=== PATIENT | female | born 1980 | race Caucasian/White ===

== ENCOUNTER 2016-10-21 17:24 | Emergency (ER) | payer MEDICARE, OTHER ==
[~2016-10-21] VITALS: Wt 78.0 kg
[~2016-10-21 17:24] MED LIST: ASCO-163 PO; CARB200T70 PO; FURO-109 PO; HYDR-902 PO; LURA120T PO; METF-382 PO; POTA8CAP PO; RANI150T5 PO; VALA500T PO; ZIPR40CA2 PO
[2016-10-21] MEDS ORDERED: ACETAMINOPHEN 325 MG TAB PO ONE (18:00)
[2016-10-21] MEDS ORDERED: NITROFURANTOIN (SR) 100 MG CAP PO ONE (18:00)
[2016-10-21] MEDS ORDERED: PHENAZOPYRIDINE 100 MG TAB PO ONE (18:00)
[2016-10-21] MEDS ORDERED: BUPR200T2 PO (18:03)
[2016-10-21] MEDS ORDERED: LUBI24CA7 PO (18:03)
[2016-10-21] MEDS ORDERED: CLON2TAB3 PO (18:04)
[2016-10-21] MEDS ORDERED: MORP-58 PO (18:05)
[2016-10-21] MEDS ORDERED: ARIP20TA6 PO (18:06)
[2016-10-21 18:56] LABS: URINE BLOOD (Dip) POC Negative (NEGATIVE)
[2016-10-21] MEDS ORDERED: IBUP-1542 PO (19:12)
[2016-10-21] MEDS ORDERED: PHEN-616 PO (19:12)
--- NOTE | 2016-10-21 19:57 | ERD ---
ER Documentation Chief Complaint Date/Time DATE: 10/21/16 TIME: 19:52 Chief Complaint URINARY RETENTION FOR 2 DAYS. LOW ABD PAIN. FEELING DIZZY. BS 84 HPI Patient is a 36-year-old female with UTI, diabetes, and schizoaffective disorder who presents with bladder pain. The patient says that she has not been able to urinate for the past 2 days. She has had this problem in the past. She takes Lasix. She said that she had a fever in triage. She has not called her primary doctor as of yet. Upon review of old medical records the patient has multiple visits to the ER for various complaints. Review of the emergency department information exchange shows multiple visits to 4 different emergency departments over the past year. ROS All systems reviewed and are negative except as per history of present illness. Medications Home Meds Active Scripts Ibuprofen* (Motrin*) 600 Mg Tab, 600 MG PO Q6H Y for PAIN AND OR ELEVATED TEMP, #30 TAB Prov:RAMON WILLIAM MD 10/21/16 Phenazopyridine Hcl* (Phenazopyridine Hcl*) 200 Mg Tablet, 200 MG PO TID, #6 TAB Prov:RAMON WILLIAM MD 10/21/16 Reported Medications Aripiprazole* (Abilify*) 20 Mg Tablet, 20 MG PO QHS, #30 TAB 10/21/16 Morphine Sulfate* (Oramorph SR*) 30 Mg Tablet.sa, 30 MG PO Q12, TAB.SA 10/21/16 Clonazepam* (Clonazepam*) 2 Mg Tablet, 2 MG PO BID, TAB 10/21/16 Lubiprostone* (Amitiza*) 24 Mcg Capsule, 24 MCG PO BID, #60 CAP 10/21/16 Bupropion Hcl* (Wellbutrin SR*) 200 Mg Tablet.sa, 200 MG PO BID, TAB.SA 10/21/16 Ascorbic Acid (Vitamin C With Ivette Hips) 1,000 Mg Tablet, 1000 MG PO DAILY, TAB 07/22/16 Potassium Chloride* (Potassium Chloride*) 8 Meq Capsule.er, 8 MEQ PO DAILY, CAP 07/22/16 Carbamazepine* (Tegretol Xr*) 200 Mg Tab.sr.12h, 200 MG PO Q12, TAB.SA 09/28/15 Valacyclovir Hcl* (Valacyclovir Hcl*) 500 Mg Tablet, 500 MG PO BID, TAB 09/28/15 Furosemide* (Lasix*) 40 Mg Tablet, 40 MG PO DAILY, TAB 09/28/15 Metformin Hcl* (Metformin Hcl*) 500 Mg Tablet, 500 MG PO WITH BREAKFAST DINNE, # 60 TAB 09/28/15 Discontinued Reported Medications Hydrocodone/Acetaminophen ([place] 10-325 Tablet) 1 Each Tablet, 1 EACH PO Q8 Y for PRN, TAB 07/22/16 Ranitidine Hcl* (Ranitidine Hcl*) 150 Mg Tablet, 150 MG PO HS, #30 TAB 07/22/16 Lurasidone Hcl (LATUDA) 120 Mg Tablet, 120 MG PO DAILY, #30 TAB TAKE 5PM WITH FOOD 07/22/16 Ziprasidone* (Geodon*) 40 Mg Capsule, 40 MG PO BID, CAP 09/28/15 Allergies Allergies: Coded Allergies: sumatriptan (Verified Allergy, Unknown, 10/21/16) PMhx/Soc History of Surgery: Yes (PICC line placement /removal) Anesthesia Reaction: No Hx Neurological Disorder: Yes (Meningitis) Hx Respiratory Disorders: Yes (Pneumonia) Hx Cardiac Disorders: No Hx Psychiatric Problems: No Hx Miscellaneous Medical Probl: Yes (schizophrenia) Hx Alcohol Use: No Hx Substance Use: No Hx Tobacco Use: No Smoking Status: Never smoker FmHx Family History: diabetes Physical Exam Vitals Vital Signs Date Time Temp Pulse Resp B/P Pulse Ox O2 Delivery O2 Flow Rate FiO2 10/21/16 17:29 101.5 105 22 130/72 99 Physical Exam Const: No acute distress Head: Atraumatic Eyes: Normal Conjunctiva ENT: Normal External Ears, Nose and Mouth. Neck: Full range of motion..~ No meningismus. Resp: Clear to auscultation bilaterally Cardio: Regular rate and rhythm, no murmurs Abd: Soft, mild pain over the bladder without rebound or guarding Skin: No petechiae or rashes Back: No midline or flank tenderness Ext: No cyanosis, or edema Neur: Awake and alert Psych: Normal Mood and Affect Results 24 hrs Laboratory Tests Test 10/21/16 17:32 10/21/16 18:56 Bedside Glucose 84mg/dL Bedside Urine Blood Negative Bedside Urine Glucose (UA) Negative Bedside Urine Ketones (LAB) Negative Bedside Urine Leukocyte Esterase (L Negative Bedside Urine Nitrite (LAB) Negative Bedside Urine Protein (LAB) Negative Bedside Urine pH (LAB) 7.0 Current Medications Medications (Trade) Dose Ordered Sig/Chance Route PRN Reason Start Time Stop Time Status Last Admin Dose Admin Acetaminophen (Tylenol Tab) 650 mg ONCE ONCE PO 10/21/16 18:00 10/21/16 19:28 DC 10/21/16 18:57 Phenazopyridine HCl (Pyridium) 200 mg ONCE ONCE PO 10/21/16 18:00 10/21/16 19:28 DC 10/21/16 18:57 Nitrofurantoin Macrocrystals (Macrobid) 100 mg ONCE ONCE PO 10/21/16 18:00 10/21/16 19:28 DC 10/21/16 18:57 Procedures/MDM Urine dip shows no sign of infection. Urine culture is pending. Patient is a 36-year-old female with schizoaffective disorder who presents with urinary retention. The patient has no sign of infection at this time. The patient was given Pyridium. The patient will be discharged home and can follow- up with her primary doctor within 24-48 hours and I will also give her information for Dr. Shaikh from urology. The patient could return for any worsening symptoms. At this point I doubt serious bacterial infection or other significant etiology of her urinary retention. She does have a fever but given the time of year I believe this most likely a viral illness and not serious bacterial infection that requires further workup at this time. She was given Tylenol for fever in the emergency department. Departure Diagnosis: Primary Impression: Fever Fever type: unspecified Qualified Code: R50.9 - Fever, unspecified fever cause Additional Impression: Retention of urine Condition: Fair Patient Instructions: Fever Control (Adult), Urinary Retention, Female Referrals: SUKI SHAIKH MD Additional Instructions: Call your primary care doctor TOMORROW for an appointment during the next 1-2 days.See the doctor sooner or return here if your condition worsens before your appointment time. RAMON WILLIAM MD Oct 21, 2016 19:57
== END 2016-10-21 19:28 | disposition home or self-care (01) ==
LOC: E/R 17:24
DX: R50.9 Fever, unspecified (principal); E11.9 Type 2 diabetes mellitus without complications; Z79.84 Long term (current) use of oral hypoglycemic drugs
CPT/HCPCS: 81003; 82962; 87086; 99283

== ENCOUNTER 2016-12-13 09:05 | Emergency (ER) | payer OTHER ==
[~2016-12-13] VITALS: Ht 165.1 cm; Wt 68.0 kg
[~2016-12-13 09:05] MED LIST changes: +ARIP20TA6 PO; +BUPR200T2 PO; +CLON2TAB3 PO; -HYDR-902 PO; +IBUP-1542 PO; +LUBI24CA7 PO; -LURA120T PO; +MORP-58 PO; +PHEN-616 PO; -RANI150T5 PO; -ZIPR40CA2 PO
[2016-12-13 09:12] VITALS: Ht 165.1 cm; Wt 68.0 kg
[2016-12-13] MEDS ORDERED: BLVX50T PO (11:18)
[2016-12-13] MEDS ORDERED: CARI350T PO (11:20)
[2016-12-13] MEDS ORDERED: POTA10TA37 PO (11:21)
[2016-12-13] MEDS ORDERED: CLON2TAB3 PO (11:38)
--- NOTE | 2016-12-13 11:38 | ERD ---
ER Documentation Chief Complaint Date/Time DATE: 12/13/16 TIME: 11:33 Chief Complaint medication refill needs psych meds denies SI HI HPI Patient is a 36-year-old female with a history of schizoaffective, bipolar, anxiety and depression who presents to the ED for medication refill. She states that she has not taken her medication in the last month. She states that she ran out of her medications and is here for refill of her clonazepam, Luvox, amphetamine, Soma, morphine and potassium chloride. She states that she was homeless but is now in a sober facility. She denies any use of drugs, drinking or smoking. She states that she has an appointment with her primary care and pain management on the 12/26/16. She states that she would like refills until then. She denies any suicidal ideation. She denies plan. She denies hallucinations, auditory or visual. She states that she has had suicidal tendencies in the past however she denies any recent suicidal ideation or tendency or thoughts in the last month. Denies fever or chills. Denies nausea, vomiting, diarrhea, sweating, palpitations, shaking. Denies chest pain or shortness of breath or difficulty breathing. Denies headache or dizziness. Denies withdrawal symptoms. ROS All systems reviewed and are negative except as per history of present illness. Medications Home Meds Active Scripts Clonazepam* (Clonazepam*) 2 Mg Tablet, 2 MG PO BID for 14 Days, TAB Prov:DOMINGO HICKMAN PA-C 12/13/16 Potassium Chloride* (K-Dur*) 10 Meq Tab.prt.sr, 10 MEQ PO DAILY, #20 TAB Prov:DOMINGO HICKMAN PA-C 12/13/16 Carisoprodol* (Soma*) 350 Mg Tablet, 350 MG PO DAILY, #10 TAB Prov:DOMINGO HICKMANC 12/13/16 Fluvoxamine Maleate* (Luvox*) 50 Mg Tab, 50 MG PO BID for 30 Days, TAB Prov:DOMINGO HICKMANC 12/13/16 Ibuprofen* (Motrin*) 600 Mg Tab, 600 MG PO Q6H Y for PAIN AND OR ELEVATED TEMP, #30 TAB Prov:RAMON WILLIAM MD 10/21/16 Phenazopyridine Hcl* (Phenazopyridine Hcl*) 200 Mg Tablet, 200 MG PO TID, #6 TAB Prov:RAMON WILLIAM MD 10/21/16 Reported Medications Aripiprazole* (Abilify*) 20 Mg Tablet, 20 MG PO QHS, #30 TAB 10/21/16 Morphine Sulfate* (Oramorph SR*) 30 Mg Tablet.sa, 30 MG PO Q12, TAB.SA 10/21/16 Clonazepam* (Clonazepam*) 2 Mg Tablet, 2 MG PO BID, TAB 10/21/16 Lubiprostone* (Amitiza*) 24 Mcg Capsule, 24 MCG PO BID, #60 CAP 10/21/16 Bupropion Hcl* (Wellbutrin SR*) 200 Mg Tablet.sa, 200 MG PO BID, TAB.SA 10/21/16 Ascorbic Acid (Vitamin C With Ivette Hips) 1,000 Mg Tablet, 1000 MG PO DAILY, TAB 07/22/16 Potassium Chloride* (Potassium Chloride*) 8 Meq Capsule.er, 8 MEQ PO DAILY, CAP 07/22/16 Carbamazepine* (Tegretol Xr*) 200 Mg Tab.sr.12h, 200 MG PO Q12, TAB.SA 09/28/15 Valacyclovir Hcl* (Valacyclovir Hcl*) 500 Mg Tablet, 500 MG PO BID, TAB 09/28/15 Furosemide* (Lasix*) 40 Mg Tablet, 40 MG PO DAILY, TAB 09/28/15 Metformin Hcl* (Metformin Hcl*) 500 Mg Tablet, 500 MG PO WITH BREAKFAST DINNE, # 60 TAB 09/28/15 Allergies Allergies: Coded Allergies: sumatriptan (Verified Allergy, Unknown, 10/21/16) PMhx/Soc History of Surgery: Yes (PICC line placement /removal) Anesthesia Reaction: No Hx Neurological Disorder: Yes (Meningitis) Hx Respiratory Disorders: Yes (Pneumonia) Hx Cardiac Disorders: No Hx Psychiatric Problems: No Hx Miscellaneous Medical Probl: Yes (schizophrenia) Hx Alcohol Use: No Hx Substance Use: No Hx Tobacco Use: No FmHx Family History: No coronary disease, No diabetes, No other Physical Exam Vitals Vital Signs Date Time Temp Pulse Resp B/P Pulse Ox O2 Delivery O2 Flow Rate FiO2 12/13/16 09:12 98.1 120 18 146/83 98 Physical Exam GENERAL: Well-developed, well-nourished female. Appears in no acute distress. HEAD: Normocephalic, atraumatic. EYES: Pupils are equally reactive bilaterally. EOMs grossly intact. No conjunctival erythema. ENT: Moist mucous membranes. No uvula deviation. No kissing tonsils. No exudates. NECK: Supple. No lymphadenopathy or thyromegaly. No meningismus. negative kernig. negative brudinski. LUNG: Clear to auscultation bilaterally. No rhonchi, wheezing, rales or coarse breath sounds. HEART: Regular rate and rhythm. No murmurs, rubs or gallops. ABDOMEN: No scars, ecchymosis or rashes noted. Soft, nontender, and nondistended. Positive bowel sounds in all four quadrants. No rebound tenderness , no guarding. (-) McBurneys point tenderness. No CVA tenderness. BACK: No midline tenderness. Extremities: Equal pulses bilaterally. No peripheral clubbing, cyanosis or edema. No unilateral leg swelling. NEUROLOGIC: Alert and oriented. Moving all four extremities. 5/5 strength in all extremities. Normal speech. Steady gait. SKIN: Normal color. Warm and dry. No rashes or lesions. Capillary refill < 2 seconds Procedures/MDM ER COURSE: I kept the patient and/or family informed of laboratory and diagnostic imaging results throughout the emergency room course. MEDICAL DECISION MAKING: This is a 36-year-old female who presents with medication refill. Vital signs were reviewed. Patient is afebrile. Patient is not hypoxic. Patient is not toxic or ill-appearing. I will be refilling her medications except for her morphine and amphetamines. I consulted with Dr. Doe regarding this and he stated that no pain medications can be refilled. Since patient has had a drug overdose I will not be refilling any of her narcotic pain medications and there is drug seeking behavior. I will give her a short course of Soma however no morphine or amphetamine. I did explain this to patient which she understood. I will also be giving patient other pain management doctors that she can follow- up with possibly earlier. Patient refused any social service help or any help for community resources. I have low suspicion for seizure, sepsis, withdrawal symptoms, delirium tremens, hallucinations, suicide. DISCHARGE: At this time, patient is stable for discharge and outpatient management with no new complaints during the ER course. Patient was sent home with refill of Luvox , clonazepam and Soma and KCL. I explained to patient that no other narcotic pain medications will be filled and that she has to follow up with her pain specialist or PCP for her refills. I explained to her that I will not be calling the pharmacy to check for her prescriptions.Patient will be discharged home with instructions to recheck for new or worsening symptoms such as fever, nausea, weakness, LOC and to follow up with primary care in the next 1-2 days. Patient was advised to return to the ER for any new or worsening symptoms. Plan was discussed and patient and/or family understands and agrees. Home instructions were given. Departure Diagnosis: Primary Impression: Encounter for medication refill Condition: Stable Patient Instructions: Taking Medicine Safely Referrals: MAY CRUZ (PCP) DOE MOSS MD, ANTHONY Jr., LIOR FOUNTAIN MD Additional Instructions: Call your primary care doctor TOMORROW for an appointment during the next 1-2 days.See the doctor sooner or return here if your condition worsens before your appointment time. DOMINGO HICKMAN PA-C Dec 13, 2016 11:37
== END 2016-12-13 11:45 | disposition home or self-care (01) ==
LOC: FTE 09:05
DX: Z76.0 Encounter for issue of repeat prescription (principal); E11.9 Type 2 diabetes mellitus without complications; Z79.84 Long term (current) use of oral hypoglycemic drugs
CPT/HCPCS: 99281

== ENCOUNTER 2016-12-23 01:07 | Emergency (ER) | payer OTHER ==
[~2016-12-23] VITALS: Ht 170.2 cm; Wt 68.0 kg
[~2016-12-23 01:07] MED LIST changes: -ARIP20TA6 PO; +ARIP20TA7 PO; +BLVX50T PO; +CARI350T PO; -METF-382 PO; +METF500T4 PO; +POTA10TA37 PO
[2016-12-23 01:15] VITALS: Ht 170.2 cm; Wt 68.0 kg
--- NOTE | 2016-12-23 01:36 | ERA ---
ER Documentation Chief Complaint Date/Time DATE: 12/23/16 TIME: 01:35 Chief Complaint Pt repors SI but no plan and visual hallucinations. Off meds for 2 weeks HPI The patient is a 36-year-old female, presenting to the ER because of suicidal ideation, she has no plans. She has been off the medication for the last 2 weeks including Abilify, carbamazepine, clonazepam because he has been relapsed for the last 2 weeks doing amphetamine. She does not have any homicidal ideation, fever, chills, neck pain, chest pain, abdominal pain, vomiting, dysuria, diarrhea, constipation. She does not smoke nor drink Past medical history: Schizoaffective disorder, diabetes mellitus Past surgical history: , surgery related to cervical cancer ROS All systems reviewed and are negative except as per history of present illness. Medications Home Meds Active Scripts Clonazepam* (Clonazepam*) 2 Mg Tablet, 2 MG PO BID for 14 Days, TAB Prov:DOMINGO HICKMAN PA-C 12/13/16 Potassium Chloride* (K-Dur*) 10 Meq Tab.prt.sr, 10 MEQ PO DAILY, #20 TAB Prov:DOMINGO HICKMAN PA-C 12/13/16 Carisoprodol* (Soma*) 350 Mg Tablet, 350 MG PO DAILY, #10 TAB Prov:DOMINGO HICKMAN PA-C 12/13/16 Fluvoxamine Maleate* (Luvox*) 50 Mg Tab, 50 MG PO BID for 30 Days, TAB Prov:DOMINGO HICKMAN PA-C 12/13/16 Ibuprofen* (Motrin*) 600 Mg Tab, 600 MG PO Q6H Y for PAIN AND OR ELEVATED TEMP, #30 TAB Prov:RAMON WILLIAM MD 10/21/16 Phenazopyridine Hcl* (Phenazopyridine Hcl*) 200 Mg Tablet, 200 MG PO TID, #6 TAB Prov:RAMON WILLIAM MD 10/21/16 Reported Medications Aripiprazole* (Abilify*) 20 Mg Tablet, 20 MG PO QHS, #30 TAB 10/21/16 Morphine Sulfate* (Oramorph SR*) 30 Mg Tablet.sa, 30 MG PO Q12, TAB.SA 10/21/16 Clonazepam* (Clonazepam*) 2 Mg Tablet, 2 MG PO BID, TAB 10/21/16 Lubiprostone* (Amitiza*) 24 Mcg Capsule, 24 MCG PO BID, #60 CAP 10/21/16 Bupropion Hcl* (Wellbutrin SR*) 200 Mg Tablet.sa, 200 MG PO BID, TAB.SA 10/21/16 Ascorbic Acid (Vitamin C With Ivette Hips) 1,000 Mg Tablet, 1000 MG PO DAILY, TAB 07/22/16 Potassium Chloride* (Potassium Chloride*) 8 Meq Capsule.er, 8 MEQ PO DAILY, CAP 07/22/16 Carbamazepine* (Tegretol Xr*) 200 Mg Tab.sr.12h, 200 MG PO Q12, TAB.SA 09/28/15 Valacyclovir Hcl* (Valacyclovir Hcl*) 500 Mg Tablet, 500 MG PO BID, TAB 09/28/15 Furosemide* (Lasix*) 40 Mg Tablet, 40 MG PO DAILY, TAB 09/28/15 Metformin Hcl* (Metformin Hcl*) 500 Mg Tablet, 500 MG PO WITH BREAKFAST DINNE, # 60 TAB 09/28/15 Allergies Allergies: Coded Allergies: sumatriptan (Verified Allergy, Unknown, 10/21/16) PMhx/Soc History of Surgery: Yes (PICC line placement /removal) Anesthesia Reaction: No Hx Neurological Disorder: Yes (Meningitis) Hx Respiratory Disorders: Yes (Pneumonia) Hx Cardiac Disorders: No Hx Psychiatric Problems: No Hx Miscellaneous Medical Probl: Yes (schizophrenia) Hx Alcohol Use: No Hx Substance Use: No Hx Tobacco Use: No Smoking Status: Never smoker Physical Exam Vitals Vital Signs Date Time Temp Pulse Resp B/P Pulse Ox O2 Delivery O2 Flow Rate FiO2 12/23/16 01:15 97.8 100 18 132/83 100 Physical Exam Const: No acute distress. Head: Atraumatic. Eyes: Normal Conjunctiva. ENT: Normal External Ears, Nose and Mouth. Neck: Full range of motion. No meningismus. Resp: Clear to auscultation bilaterally. Cardio: Regular rate and rhythm, no murmurs. Abd: Soft, non distended, normal bowel sounds, non tender. Skin: No petechiae or rashes. Back: No midline or flank tenderness. Ext: No cyanosis, or edema. Neur: Awake and alert. No focal deficit Psych: Depressed Result Diagram: 12/23/16 0210 12/23/16 0210 Results 24 hrs Laboratory Tests Test 12/23/16 01:45 12/23/16 02:08 12/23/16 02:10 Urine Color YELLOW Urine Clarity CLOUDY Urine pH 6.0 Urine Specific [place] 1.025 Urine Ketones TRACE Urine Nitrite NEGATIVE Urine Bilirubin 2+ Urine Ictotest NEGATIVE Urine Urobilinogen 1.0 E.U./dL Urine Leukocyte Esterase 1+ Urine Microscopic RBC NONE SEEN/HPF Urine Microscopic WBC 25-50/HPF Urine Squamous Epithelial Cells MANY Urine Calcium Oxalate Crystals OCCASIONAL Urine Bacteria MANY Urine Hemoglobin TRACE Urine Glucose NEGATIVE% Urine Total Protein 1+ Urine Opiates Screen Negative Urine Barbiturates Negative Urine Amphetamines Screen Positive Urine Benzodiazepines Screen Negative Urine Cocaine Screen Negative Urine Cannabinoids Negative Bedside Glucose 125mg/dL White Blood Count 8.010^3/ul Red Blood Count 4.2110^6/ul Hemoglobin 12.7g/dl Hematocrit 38.6% Mean Corpuscular Volume 91.7fl Mean Corpuscular Hemoglobin 30.2pg Mean Corpuscular Hemoglobin Concent 32.9g/dl Red Cell Distribution Width 13.2% Platelet Count 38451^3/UL Mean Platelet Volume 9.5fl Neutrophils % 66.7% Lymphocytes % 24.1% Monocytes % 6.5% Eosinophils % 1.8% Basophils % 0.6% Nucleated Red Blood Cells % 0.0/100WBC Neutrophils # 5.310^3/ul Lymphocytes # 1.910^3/ul Monocytes # 0.510^3/ul Eosinophils # 0.110^3/ul Basophils # 0.110^3/ul Nucleated Red Blood Cells # 0.010^3/ul Sodium Level 144mmol/L Potassium Level 3.4mmol/L Chloride Level 102mmol/L Carbon Dioxide Level 28mmol/L Anion Gap 17 Blood Urea Nitrogen 12mg/dl Creatinine 0.81mg/dl Glucose Level 120mg/dl Calcium Level 9.3mg/dl Total Bilirubin 0.2mg/dl Direct Bilirubin 0.00mg/dl Indirect Bilirubin 0.2mg/dl Aspartate Amino Transf (AST/SGOT) 31IU/L Alanine Aminotransferase (ALT/SGPT) 29IU/L Alkaline Phosphatase 125IU/L Total Protein 8.0g/dl Albumin 4.2g/dl Globulin 3.80g/dl Albumin/Globulin Ratio 1.10 Salicylates Level < 1.0mg/dl Acetaminophen Level < 10.0ug/ml Ethyl Alcohol Level < 10.0mg/dl Procedures/MDM MEDICAL MAKING DECISION: The patient is a 36-year-old female, presenting with acute suicidal ideation, substance abuse, acute hypokalemia, acute cystitis. She was treated with potassium chloride 20 mEq p.o. for hypokalemia, Bactrim DS p.o. for acute cystitis. The differential diagnoses considered include but are not limited to psychosis, drug-induced psychosis, UTI, pyelonephritis, depression Departure Diagnosis: Primary Impression: Suicidal ideation Additional Impressions: UTI (urinary tract infection) Hypokalemia Amphetamine abuse Condition: Stable Comments She is awaiting for telepsychiatrist evaluation The patient's blood pressure was elevated (>120/80) but appears stable without evidence of hypertension emergency or urgency. The patient was counseled about the risks of hypertension and urged to pursue outpatient monitoring and therapy within a week with their primary care physician. JUSTUS TALBERT MD Dec 23, 2016 01:36
[2016-12-23 02:06] LABS: ADD UMIC YES; URINE BILIRUBIN (Dip) 2+ (NEGATIVE); URINE BLOOD (Dip) TRACE (NEGATIVE); URINE COLOR YELLOW (YELLOW); URINE GLUCOSE (Dip) NEGATIVE (NEGATIVE); URINE KETONES (Dip) TRACE (NEGATIVE); URINE LEUKOCYTE ESTERASE (Dip) 1+ (NEGATIVE); URINE NITRITE (Dip) NEGATIVE (NEGATIVE); URINE TOTAL PROTEIN (Dip) 1+ (NEGATIVE); URINE UROBILINOGEN (Dip) 1.0 E.U./dL (0.1-1.0)
[2016-12-23 02:16] LABS: ICTOTEST NEGATIVE (NEGATIVE)
[2016-12-23 02:18] LABS: URINE RBCS NONE SEEN /HPF (0)
[2016-12-23 02:19] LABS: BACTERIA,URINE MANY; SQUAMOUS EPITHELIAL CELL,UR MANY
[2016-12-23 02:31] LABS: BENZODIAZEPINES Negative (NEGATIVE)
[2016-12-23 02:32] LABS: BARBITURATES Negative (NEGATIVE); CANNABINOIDS Negative (NEGATIVE)
[2016-12-23 02:33] LABS: OPIATES Negative (NEGATIVE)
[2016-12-23 02:34] LABS: ADD SCAN DIFF NO
[2016-12-23 02:36] LABS: BASOPHIL # 0.1 10^3/ul (0.0-0.1); BASOPHILS % 0.6 % (0.0-2.0); EOSINOPHILS # 0.1 10^3/ul (0.0-0.5); EOSINOPHILS % 1.8 % (0.0-7.0); HEMATOCRIT 38.6 % (37.0-47.0); HEMOGLOBIN 12.7 g/dl (12.0-16.0); LYMPHOCYTES # 1.9 10^3/ul (0.8-2.9); LYMPHOCYTES % 24.1 % (15.0-51.0); MEAN CORPUSCULAR HEMOGLOBIN 30.2 pg (29.0-33.0); MEAN CORPUSCULAR HGB CONC 32.9 g/dl (32.0-37.0); MEAN CORPUSCULAR VOLUME 91.7 fl (82.0-101.0); MEAN PLATELET VOLUME 9.5 fl (7.4-10.4); MONOCYTE # 0.5 10^3/ul (0.3-0.9); MONOCYTES % 6.5 % (0.0-11.0); NEUTROPHIL # 5.3 10^3/ul (1.6-7.5); NEUTROPHILS % 66.7 % (39.0-77.0); PLATELET COUNT 406 10^3/UL (140-415); RED BLOOD COUNT 4.21 10^6/ul (4.20-5.40); RED CELL DISTRIBUTION WIDTH 13.2 % (11.5-14.5)
[2016-12-23 02:38] LABS: COCAINE Negative (NEGATIVE)
[2016-12-23 02:43] LABS: ALBUMIN 4.2 g/dl (3.3-4.9)
[2016-12-23 02:44] LABS: CHLORIDE 102 mmol/L (97-110); POTASSIUM 3.4 mmol/L (3.5-5.1); SODIUM 144 mmol/L (135-144)
[2016-12-23 02:46] LABS: ALANINE AMINOTRANSFERASE 29 IU/L (13-69); ALKALINE PHOSPHATASE 125 IU/L (42-121); ANION GAP 17 (8-16); ASPARTATE AMINO TRANSFERASE 31 IU/L (15-46); BILIRUBIN,INDIRECT 0.2 mg/dl (0-1.1); BILIRUBIN,TOTAL 0.2 mg/dl (0.2-1.3); BLOOD UREA NITROGEN 12 mg/dl (7-20); CARBON DIOXIDE 28 mmol/L (21-31); CREATININE 0.81 mg/dl (0.44-1.00); GLUCOSE 120 mg/dl (70-220)
[2016-12-23 02:47] LABS: CALCIUM 9.3 mg/dl (8.4-10.2); SALICYLATE < 1.0 mg/dl (5.0-30.0)
[2016-12-23 03:22] LABS: ACETAMINOPHEN < 10.0 ug/ml (10.0-30.0); ETHANOL < 10.0 mg/dl
[2016-12-23] MEDS ORDERED: POTASSIUM CHLORIDE (SR) 20 MEQ TAB PO ONE (03:49)
[2016-12-23] MEDS ORDERED: TRIMETHOPRIM/SULFAMETHOX (DS) TAB PO ONE (04:00)
--- NOTE | 2016-12-23 04:03 | PSY ---
Date/Time of Note Date/Time of Note DATE: 12/23/16 TIME: 03:57 Psychiatric Subjective Eval Consent Pt consented to telemedicine: Yes Subjective Evaluation Patient location: emergency Chief Complaint: Pt repors SI but no plan and visual hallucinations. Off meds for 2 weeks Reason for consult: Suicidal ideation, psychosis History of present illness Pt reports a long history of psychiatric illness. She states she started hallucinating as a baby in the crib. She takes Abilify 20mg, Clonazepam, TEgretol, Luvox and Adderall for her psychiatric conditions. She has had multiple medication trials and psychiatric admissions. Approximately two weeks ago she started missing some of her medications, reducing the dose and not taking others. She started deteriorating. She became paranoid that people were out to harm her. She started hearing voices. Two days ago, she started back on her medications as prescribed. However, today she started seeing images turn into people. She became very scared and started thinking about killing herself. Patient does not want to kill herself and does not have a plan but is scared of her hallucinations and does not feel safe out of the hospital. Past psychiatric history Diagnosed with schizoaffective disorder. See above Hospitalization: yes Family History NA Medical history Problems Medical Problems: (1) Acute drug overdose Status: Acute (2) Acute schizoaffective disorder Status: Acute (3) Chronic pain Status: Acute (4) Coagulopathy Status: Acute (5) Contusion Status: Acute (6) Drug-seeking behavior Status: Acute (7) Encounter for medication refill Status: Acute (8) Fever Status: Acute (9) Fever Status: Acute (10) Hallucinations Status: Acute (11) Headache Status: Acute (12) Influenza-like symptoms Status: Acute (13) Intentional drug overdose Status: Acute (14) Medication refill Status: Acute (15) Opioid dependence Status: Acute (16) Patient left without being seen Status: Acute (17) Retention of urine Status: Acute (18) Retention of urine Status: Acute (19) Suicidal ideation Status: Acute (20) Suicide attempt by substance overdose Status: Acute Allergies: Coded Allergies: sumatriptan (Verified Allergy, Unknown, 10/21/16) Substance Abuse Substance abuse history: Yes Social History Marital status: Level of education: N.A DPA/Conservatorship: No Occupation/Jail: Not employed. Lives in sober living Psychiatric Objective Eval Mental Status Examination: Appearance: Groomed Eye Contact: Fair Psychomotor Activity: Normal Behavior: Friendly Speech: Clear AFFECT: Anxious Mood: Depressed Though Process: Linear Thought Content: Hallucinations, Illusion Suicidal: Yes Homicidal: No On 72 hour hold: No Orientation: x4 Cognition: Alert Insight: Impared Judgement: Impared Laboratory Results Laboratory Tests Test 12/23/16 01:45 12/23/16 02:08 12/23/16 02:10 Urine Color YELLOW Urine Clarity CLOUDY Urine pH 6.0 Urine Specific [place] 1.025 Urine Ketones TRACE Urine Nitrite NEGATIVE Urine Bilirubin 2+ Urine Ictotest NEGATIVE Urine Urobilinogen 1.0 E.U./dL Urine Leukocyte Esterase 1+ Urine Microscopic RBC NONE SEEN/HPF Urine Microscopic WBC 25-50/HPF Urine Squamous Epithelial Cells MANY Urine Calcium Oxalate Crystals OCCASIONAL Urine Bacteria MANY Urine Hemoglobin TRACE Urine Glucose NEGATIVE% Urine Total Protein 1+ Urine Opiates Screen Negative Urine Barbiturates Negative Urine Amphetamines Screen Positive Urine Benzodiazepines Screen Negative Urine Cocaine Screen Negative Urine Cannabinoids Negative Bedside Glucose 125mg/dL White Blood Count 8.010^3/ul Red Blood Count 4.2110^6/ul Hemoglobin 12.7g/dl Hematocrit 38.6% Mean Corpuscular Volume 91.7fl Mean Corpuscular Hemoglobin 30.2pg Mean Corpuscular Hemoglobin Concent 32.9g/dl Red Cell Distribution Width 13.2% Platelet Count 94121^3/UL Mean Platelet Volume 9.5fl Neutrophils % 66.7% Lymphocytes % 24.1% Monocytes % 6.5% Eosinophils % 1.8% Basophils % 0.6% Nucleated Red Blood Cells % 0.0/100WBC Neutrophils # 5.310^3/ul Lymphocytes # 1.910^3/ul Monocytes # 0.510^3/ul Eosinophils # 0.110^3/ul Basophils # 0.110^3/ul Nucleated Red Blood Cells # 0.010^3/ul Sodium Level 144mmol/L Potassium Level 3.4mmol/L Chloride Level 102mmol/L Carbon Dioxide Level 28mmol/L Anion Gap 17 Blood Urea Nitrogen 12mg/dl Creatinine 0.81mg/dl Glucose Level 120mg/dl Calcium Level 9.3mg/dl Total Bilirubin 0.2mg/dl Direct Bilirubin 0.00mg/dl Indirect Bilirubin 0.2mg/dl Aspartate Amino Transf (AST/SGOT) 31IU/L Alanine Aminotransferase (ALT/SGPT) 29IU/L Alkaline Phosphatase 125IU/L Total Protein 8.0g/dl Albumin 4.2g/dl Globulin 3.80g/dl Albumin/Globulin Ratio 1.10 Salicylates Level < 1.0mg/dl Acetaminophen Level < 10.0ug/ml Ethyl Alcohol Level < 10.0mg/dl Assessment and Plan Assessment/Diagnosis [place]: Schizoaffective Disorder by History; Unspecified Psychotic Disorder, Stimulant Use Disorder Recommendation/Plan Medication Management Per inpatient psychiatry. It does appear that there is room to increase her abilify, if needed, from 20 to 30mg. However, patient is feeling a little better by being in the ER. Would not make change at this time. Psychotherapy Brief supportive therapy Pt. Caregiver/Family Education N/A Follow-up/Disposition Transfer to inpatient psychiatry. Voluntary. Patient is having suicidal ideation but denies plan and intent. However, she is scared of her hallucinations and does not feel safe out of the hospital. [id number] Recommendation: Transfer voluntary MARIANNAJUANITA Dec 23, 2016 04:03
[2016-12-23] MEDS ORDERED: metFORMIN 500 MG TAB PO ONE (08:00)
[2016-12-23] MEDS ORDERED: ARIPIPRAZOLE 10 MG TAB PO ONE (08:00)
[2016-12-23 12:40] VITALS: BP 105/59; PULSE 84; RESP 17; TEMP 98.1
[2016-12-23] MEDS ORDERED: clonAZEPAM 0.5 MG TAB PO ONE (14:30)
== END 2016-12-23 15:16 ==
LOC: E/R 01:07
DX: N39.0 Urinary tract infection, site not specified (principal); R45.851 Suicidal ideations; E87.6 Hypokalemia; F15.10 Other stimulant abuse, uncomplicated; E11.9 Type 2 diabetes mellitus without complications; Z79.84 Long term (current) use of oral hypoglycemic drugs
CPT/HCPCS: 36415; 80053; 80306; 80307; 81001; 82962; 85025; 99285; J0400; 81003

== ENCOUNTER 2017-02-03 14:03 | Emergency (ER) | payer OTHER, MEDICAID ==
[~2017-02-03] VITALS: Wt 69.0 kg
[~2017-02-03 14:03] MED LIST changes: -PHEN-616 PO
[2017-02-03] MEDS ORDERED: BLVX50T PO (14:26)
[2017-02-03] MEDS ORDERED: CLON2TAB3 PO (14:31)
--- NOTE | 2017-02-03 15:23 | ERD ---
ER Documentation Chief Complaint Date/Time DATE: 02/03/17 TIME: 15:18 Chief Complaint mild paranoia but no suicidal or homicidal ideation. needs meds refill only HPI 36-year-old female patient with a past medical history of diabetes, seizures, schizoaffective disorder, bipolar, anxiety, depression presents to the ED for a medication refill. States that she ran out of her medication about 6 days ago. Reports that she ran out of Clonazepam and Luvox. States that the other medication she takes are metformin, Lasix, Klonopin, Keppra, Abilify, Adderall and Valtrex. Denies any drug use, smoking, alcohol use. States that she was trying to contact Dr. Victor M Alex her psychiatrist but the prescriptions never went through to the pharmacy and states that since it is the weekend she is unable to get in contact with them. Denies any chest pain, shortness of breath, abdominal pain, nausea, vomiting, dizziness, headache, palpitations, shaking. Denies any fever or chills. Denies any homicidal or suicidal ideations. Denies any hallucinations that are auditory or visual. ROS All systems reviewed and are negative except as per history of present illness. Medications Home Meds Active Scripts Clonazepam* (Clonazepam*) 2 Mg Tablet, 2 MG PO BID for 14 Days, TAB Prov:SARTHAK BATISTA PA-C 02/03/17 Fluvoxamine Maleate* (Luvox*) 50 Mg Tab, 50 MG PO BID for 30 Days, TAB Prov:SARTHAK BATISTA PA-C 02/03/17 Clonazepam* (Clonazepam*) 2 Mg Tablet, 2 MG PO BID for 14 Days, TAB Prov:DOMINGO HICKMAN PA-C 12/13/16 Potassium Chloride* (K-Dur*) 10 Meq Tab.prt.sr, 10 MEQ PO DAILY, #20 TAB Prov:DOMINGO HICKMAN PA-C 12/13/16 Carisoprodol* (Soma*) 350 Mg Tablet, 350 MG PO DAILY, #10 TAB Prov:DOMINGO HICKMAN PA-C 12/13/16 Fluvoxamine Maleate* (Luvox*) 50 Mg Tab, 50 MG PO BID for 30 Days, TAB Prov:DOMINGO HICKMAN PA-C 12/13/16 Ibuprofen* (Motrin*) 600 Mg Tab, 600 MG PO Q6H Y for PAIN AND OR ELEVATED TEMP, #30 TAB Prov:RAMON WILLIAM MD 10/21/16 Reported Medications Aripiprazole* (Abilify*) 20 Mg Tablet, 20 MG PO QHS, #30 TAB 10/21/16 Morphine Sulfate* (Oramorph SR*) 30 Mg Tablet.sa, 30 MG PO Q12, TAB.SA 10/21/16 Clonazepam* (Clonazepam*) 2 Mg Tablet, 2 MG PO BID, TAB 10/21/16 Lubiprostone* (Amitiza*) 24 Mcg Capsule, 24 MCG PO BID, #60 CAP 10/21/16 Bupropion Hcl* (Wellbutrin SR*) 200 Mg Tablet.sa, 200 MG PO BID, TAB.SA 10/21/16 Ascorbic Acid (Vitamin C With Ivette Hips) 1,000 Mg Tablet, 1000 MG PO DAILY, TAB 07/22/16 Potassium Chloride* (Potassium Chloride*) 8 Meq Capsule.er, 8 MEQ PO DAILY, CAP 07/22/16 Carbamazepine* (Tegretol Xr*) 200 Mg Tab.sr.12h, 200 MG PO Q12, TAB.SA 09/28/15 Valacyclovir Hcl* (Valacyclovir Hcl*) 500 Mg Tablet, 500 MG PO BID, TAB 09/28/15 Furosemide* (Lasix*) 40 Mg Tablet, 40 MG PO DAILY, TAB 09/28/15 Metformin Hcl* (Metformin Hcl*) 500 Mg Tablet, 500 MG PO WITH BREAKFAST DINNE, # 60 TAB 09/28/15 Allergies Allergies: Coded Allergies: sumatriptan (Verified Allergy, Unknown, 10/21/16) PMhx/Soc History of Surgery: Yes (PICC line placement /removal) Anesthesia Reaction: No Hx Neurological Disorder: Yes (Meningitis) Hx Respiratory Disorders: Yes (Pneumonia) Hx Cardiac Disorders: No Hx Psychiatric Problems: Yes (Schizoaffective Disorder) Hx Miscellaneous Medical Probl: No Hx Alcohol Use: No Hx Substance Use: Yes (Meth) Hx Tobacco Use: No Physical Exam Vitals Vital Signs Date Time Temp Pulse Resp B/P Pulse Ox O2 Delivery O2 Flow Rate FiO2 02/03/17 14:09 98.0 101 20 115/79 98 Physical Exam Const: [id number], well-nourished. In no acute distress. Head: Atraumatic, normocephalic Eyes: Normal Conjunctiva without injection. No purulent discharge. PERRLA. EOMI ENT: Normal external ear. Ear canal without erythema. Tympanic membrane pearly daniels without effusion or bulging. Nasal canal clear with normal turbinates. Moist oropharynx without tonsillar exudates. Non-erythematous pharynx. Uvula midline. No drooling. No trismus. Neck: No cervical midline tenderness. Full range of motion. No meningismus. No cervical lymphadenopathy. No JVD. Resp: Clear to auscultation bilaterally. No wheezing, rhonchi, rales, or crackles. No accessory muscle use. No retractions. Cardio: Regular rate and rhythm. No murmurs, rubs or gallops. Skin: Normal skin turgor. No petechiae or rashes Ext: No cyanosis, or edema. Distal pulses intact bilaterally. Neur: Awake and alert. Normal gait. Normal coordination. Cranial Nerves II- VII intact. Normal finger to nose. Muscle strength 5/5. Sensation intact. Psych: Normal Mood and Affect Procedures/MDM This is a 36-year-old female patient with a past medical history of diabetes, seizures, schizoaffective disorder, depression, anxiety presents to the ED for a medication refill. Vital signs reviewed by me. Patient is afebrile. Patient is well-appearing. I will refill her Luvox and Clonazepam at this time. Patient is afebrile and nontoxic-appearing. Patient has normal vital signs. There is low suspicion for seizures, sepsis, withdrawal symptoms, delirium tremens, hallucinations, suicide, meningitis. No indication for tele- psychiatric consultation at this time. Patient did not request for any narcotic prescriptions. Discharge medications: Luvox, Clonazepam Follow up with primary care physician in 1-2 days. Instructed patient to return to the ED sooner for any worsening symptoms. Patient's questions were answered. Patient understood and agreed with discharge plan. Patient discharged stable. Departure Diagnosis: Primary Impression: Encounter for medication refill Condition: Stable Patient Instructions: Taking Medicine Safely Referrals: [facility] CRU[facility] (PCP) [facility] YOU HAVE RECEIVED A MEDICAL SCREENING EXAM AND THE RESULTS INDICATE THAT YOU DO NOT HAVE A CONDITION THAT REQUIRES URGENT TREATMENT IN THE EMERGENCY DEPARTMENT. FURTHER EVALUATION AND TREATMENT OF YOUR CONDITION CAN WAIT UNTIL YOU ARE SEEN IN YOUR DOCTORS OFFICE WITHIN THE NEXT 1-2 DAYS. IT IS YOUR RESPONSIBILITY TO MAKE AN APPOINTMENT FOR FOLOW-UP CARE. IF YOU HAVE A PRIMARY DOCTOR --you should call your primary doctor and schedule an appointment IF YOU DO NOT HAVE A PRIMARY DOCTOR YOU CAN CALL OUR PHYSICIAN REFERRAL HOTLINE AT IF YOU CAN NOT AFFORD TO SEE A PHYSICIAN YOU CAN CHOSE FROM THE FOLLOWING [facility] [address] [facility] [address] [facility] [address] [facility] [address] [facility] [address] [facility]. [facility] [address] [facility] [address]. [facility] YOU HAVE RECEIVED A MEDICAL SCREENING EXAM AND THE RESULTS INDICATE THAT YOU DO NOT HAVE A CONDITION THAT REQUIRES URGENT TREATMENT IN THE EMERGENCY DEPARTMENT. FURTHER EVALUATION AND TREATMENT OF YOUR CONDITION CAN WAIT UNTIL YOU ARE SEEN IN YOUR DOCTORS OFFICE WITHIN THE NEXT 1-2 DAYS. IT IS YOUR RESPONSIBILITY TO MAKE AN APPOINTMENT FOR FOLOW-UP CARE. IF YOU HAVE A PRIMARY DOCTOR --you should call your primary doctor and schedule and appointment IF YOU DO NOT HAVE A PRIMARY DOCTOR YOU CAN CALL OUR PHYSICIAN REFERRAL HOTLINE AT . IF YOU CAN NOT AFFORD TO SEE A PHYSICIAN YOU CAN CHOSE FROM THE FOLLOWING [facility]: [facility] [id number] [place] [address] [facility] [address] [place] [address] [facility] [address] [place] [address] [facility] Additional Instructions: Call your primary care doctor for an appointment during the next 2-[address] Arabella Mustafa or Dr. Victor M Alex.See the doctor sooner or return here if your condition worsens before your appointment time. SARTHAK BATISTA PA-C February 03, 2017 15:22
== END 2017-02-03 14:37 | disposition home or self-care (01) ==
LOC: E/R 14:03
DX: Z76.0 Encounter for issue of repeat prescription (principal)
CPT/HCPCS: 99281

== ENCOUNTER 2017-02-11 13:41 | Emergency (ER) | payer OTHER, MEDICAID ==
[~2017-02-11] VITALS: Wt 70.0 kg
[2017-02-11] MEDS ORDERED: CLINDAMYCIN 300 MG INJ IM ONE (15:00)
[2017-02-11] MEDS ORDERED: IBUPROFEN 800 MG TAB PO ONE (15:00)
[2017-02-11] MEDS ORDERED: IBUP-1542 PO (15:15)
[2017-02-11] MEDS ORDERED: ACET500C5 PO (15:15)
[2017-02-11] MEDS ORDERED: CLIN-73 PO (15:18)
[2017-02-11] MEDS ORDERED: CLINDAMYCIN 600 MG INJ IM ONE (15:30)
--- NOTE | 2017-02-11 18:14 | ERD ---
ER Documentation Chief Complaint Date/Time DATE: 02/11/17 TIME: 18:10 Chief Complaint spider bite to rle HPI This is a 36-year-old female who presents to the emergency department today for what she thinks is a spider bite to her right lower leg. States that she had her friend who is "in medicine" put warm compresses on it and squeeze it. States that she has pain. States that she thinks she has had a fever. States that she does no longer go to pain management. States she is currently living with roommates. ROS All systems reviewed and are negative except as per history of present illness. Medications Home Meds Active Scripts Clindamycin Hcl* (Clindamycin Hcl*) 300 Mg Capsule, 300 MG PO TID for 7 Days, CAP Prov:MARIKA MALLOY PA-C 02/11/17 Ibuprofen* (Motrin*) 600 Mg Tab, 600 MG PO Q6, #30 TAB Prov:MARIKA MALLOY PA-C 02/11/17 Clonazepam* (Clonazepam*) 2 Mg Tablet, 2 MG PO BID for 14 Days, TAB Prov:SARTHAK BATISTA PA-C 02/03/17 Fluvoxamine Maleate* (Luvox*) 50 Mg Tab, 50 MG PO BID for 30 Days, TAB Prov:SARTHAK BATISTA PA-C 02/03/17 Clonazepam* (Clonazepam*) 2 Mg Tablet, 2 MG PO BID for 14 Days, TAB Prov:DOMINGO HICKMAN PA-C 12/13/16 Potassium Chloride* (K-Dur*) 10 Meq Tab.prt.sr, 10 MEQ PO DAILY, #20 TAB Prov:DOMINGO HICKMAN PA-C 12/13/16 Carisoprodol* (Soma*) 350 Mg Tablet, 350 MG PO DAILY, #10 TAB Prov:DOMINGO HICKMAN PA-C 12/13/16 Fluvoxamine Maleate* (Luvox*) 50 Mg Tab, 50 MG PO BID for 30 Days, TAB Prov:DOMINGO HICKMAN PA-C 12/13/16 Ibuprofen* (Motrin*) 600 Mg Tab, 600 MG PO Q6H Y for PAIN AND OR ELEVATED TEMP, #30 TAB Prov:RAMON WILLIAM MD 10/21/16 Reported Medications Aripiprazole* (Abilify*) 20 Mg Tablet, 20 MG PO QHS, #30 TAB 10/21/16 Morphine Sulfate* (Oramorph SR*) 30 Mg Tablet.sa, 30 MG PO Q12, TAB.SA 10/21/16 Clonazepam* (Clonazepam*) 2 Mg Tablet, 2 MG PO BID, TAB 10/21/16 Lubiprostone* (Amitiza*) 24 Mcg Capsule, 24 MCG PO BID, #60 CAP 10/21/16 Bupropion Hcl* (Wellbutrin SR*) 200 Mg Tablet.sa, 200 MG PO BID, TAB.SA 10/21/16 Ascorbic Acid (Vitamin C With Ivette Hips) 1,000 Mg Tablet, 1000 MG PO DAILY, TAB 07/22/16 Potassium Chloride* (Potassium Chloride*) 8 Meq Capsule.er, 8 MEQ PO DAILY, CAP 07/22/16 Carbamazepine* (Tegretol Xr*) 200 Mg Tab.sr.12h, 200 MG PO Q12, TAB.SA 09/28/15 Valacyclovir Hcl* (Valacyclovir Hcl*) 500 Mg Tablet, 500 MG PO BID, TAB 09/28/15 Furosemide* (Lasix*) 40 Mg Tablet, 40 MG PO DAILY, TAB 09/28/15 Metformin Hcl* (Metformin Hcl*) 500 Mg Tablet, 500 MG PO WITH BREAKFAST DINNE, # 60 TAB 09/28/15 Discontinued Scripts Acetaminophen* (Tylophen*) 500 Mg Capsule, 1 CAP PO Q6H Y for PAIN AND OR ELEVATED TEMP, #30 CAP Prov:MARIKA MALLOY PA-C 02/11/17 Allergies Allergies: Coded Allergies: sumatriptan (Verified Allergy, Unknown, 10/21/16) PMhx/Soc History of Surgery: Yes (PICC line placement /removal) Anesthesia Reaction: No Hx Neurological Disorder: Yes (Meningitis) Hx Respiratory Disorders: Yes (Pneumonia) Hx Cardiac Disorders: No Hx Psychiatric Problems: Yes (Schizoaffective Disorder) Hx Miscellaneous Medical Probl: No Hx Alcohol Use: No Hx Substance Use: Yes (Meth) Hx Tobacco Use: No Smoking Status: Never smoker Physical Exam Vitals Vital Signs Date Time Temp Pulse Resp B/P Pulse Ox O2 Delivery O2 Flow Rate FiO2 02/11/17 13:42 98.6 114 20 134/85 95 Physical Exam Const: No acute distress Head: Atraumatic Eyes: Normal Conjunctiva ENT: Normal External Ears, Nose and Mouth. Neck: Full range of motion..~ No meningismus. Resp: Clear to auscultation bilaterally Cardio: Regular rate and rhythm, no murmurs Abd: Soft, non tender, non distended. Normal bowel sounds Skin: Right tibia with evidence of 2 cm abscess that is draining with localized erythema. Back: No midline or flank tenderness Ext: Right tibia with evidence of abscess that is opening up and draining. Localized erythema. No firmness or induration. No calf tenderness peer Neur: Awake and alert Psych: Normal Mood and Affect Results 24 hrs Current Medications Medications (Trade) Dose Ordered Sig/Chance Route PRN Reason Start Time Stop Time Status Last Admin Dose Admin Ibuprofen (Motrin) 800 mg ONCE ONCE PO 02/11/17 15:00 02/11/17 15:01 DC 02/11/17 15:01 Clindamycin Phosphate (Cleocin) 600 mg ONCE ONCE IM 02/11/17 15:00 02/11/17 15:01 DC Clindamycin Phosphate (Cleocin) 600 mg ONCE ONCE IM 02/11/17 15:30 02/11/17 15:31 DC 02/11/17 15:19 Procedures/MDM This a 36-year-old female who presents the emergency department today for what she thought was a spider bite in her right leg. On physical exam patient has evidence of a 2 cm abscess that is already draining. There is some localized erythema. I do not feel the patient requires further incision and drainage at this time. I have explained this to the patient. Patient has been seen here in this emergency department multiple times for multiple complaints. She also has multiple psych disorders including schizoaffective disorder, bipolar, anxiety. Patient has been admitted in the past for drug overdose. Patient is afebrile and otherwise well-appearing. Her wounds were dressed here in the emergency department. She was given Motrin for pain given that patient has history of hepatitis C as well. I do not feel that the patient would benefit from narcotics at this time given her past history of drug abuse and overdose. Patient was also given a injection of clindamycin. I have given her a prescription for clindamycin for home as well as Motrin. She was instructed to return in 48 hours for a recheck. At this time I have low suspicion for sepsis, deep space infection, SJS. At this time the patient is stable for discharge and outpatient management. Patient should follow up with their PCP in the next 1-2 days. They may return to the emergency department sooner for any persistent or worsening of symptoms. Patient understood and agreed with the plan. Departure Diagnosis: Primary Impression: Abscess Condition: Fair Patient Instructions: Abscess, Antiobiotic Treatment Only Additional Instructions: Call your primary care doctor TOMORROW for an appointment during the next 1-2 days.See the doctor sooner or return here if your condition worsens before your appointment time. Take antibiotics as prescribed Wound check in 48 hours Take Tylenol or Motrin for pain Keep wound clean and dry MARIKA MALLOY PA-C Feb 11, 2017 18:14
== END 2017-02-11 15:48 | disposition home or self-care (01) ==
LOC: FTE 13:41
DX: L02.415 Cutaneous abscess of right lower limb (principal); Z79.84 Long term (current) use of oral hypoglycemic drugs
CPT/HCPCS: 96372

== ENCOUNTER 2017-02-15 03:09 | Emergency (ER) | payer OTHER, MEDICAID ==
[~2017-02-15] VITALS: Ht 167.6 cm; Wt 73.5 kg
[~2017-02-15 03:09] MED LIST changes: +CLIN-73 PO
[2017-02-15 03:13] VITALS: Ht 167.6 cm; Wt 73.5 kg
--- NOTE | 2017-02-15 03:26 | ERA ---
ER Documentation Chief Complaint Date/Time DATE: 02/15/17 TIME: 03:26 Chief Complaint suicidal ideation " thingking medication overdose" HPI The patient is a 36-year-old female, presenting to the ER because she is suicidal. She plans to overdose on her medication and has done it before. She denies auditory, visual hallucination. She does not think that the medications are working for her. Headache, neck pain, chest pain, dyspnea, abdominal pain, vomiting, dysuria, diarrhea. She does marijuana and amphetamine, denies smoking or drinking Past medical history: Bipolar, schizophrenia Past surgical history: ROS All systems reviewed and are negative except as per history of present illness. Medications Home Meds Active Scripts Clindamycin Hcl* (Clindamycin Hcl*) 300 Mg Capsule, 300 MG PO TID for 7 Days, CAP Prov:MARIKA MALLOY PA-C 02/11/17 Ibuprofen* (Motrin*) 600 Mg Tab, 600 MG PO Q6, #30 TAB Prov:MARIKA MALLOY PA-C 02/11/17 Clonazepam* (Clonazepam*) 2 Mg Tablet, 2 MG PO BID for 14 Days, TAB Prov:SARTHAK BATISTA PA-C 02/03/17 Fluvoxamine Maleate* (Luvox*) 50 Mg Tab, 50 MG PO BID for 30 Days, TAB Prov:SARTHAK BATISTA PA-C 02/03/17 Clonazepam* (Clonazepam*) 2 Mg Tablet, 2 MG PO BID for 14 Days, TAB Prov:DOIMNGO HICKMAN PA-C 12/13/16 Potassium Chloride* (K-Dur*) 10 Meq Tab.prt.sr, 10 MEQ PO DAILY, #20 TAB Prov:DOMINGO HICKMAN PA-C 12/13/16 Carisoprodol* (Soma*) 350 Mg Tablet, 350 MG PO DAILY, #10 TAB Prov:DOMINGO HICKMAN PA-C 12/13/16 Fluvoxamine Maleate* (Luvox*) 50 Mg Tab, 50 MG PO BID for 30 Days, TAB Prov:DOMINGO HICKMANC 12/13/16 Ibuprofen* (Motrin*) 600 Mg Tab, 600 MG PO Q6H Y for PAIN AND OR ELEVATED TEMP, #30 TAB Prov:OSTICK,RAMON MD 10/21/16 Reported Medications Aripiprazole* (Abilify*) 20 Mg Tablet, 20 MG PO QHS, #30 TAB 10/21/16 Morphine Sulfate* (Oramorph SR*) 30 Mg Tablet.sa, 30 MG PO Q12, TAB.SA 10/21/16 Clonazepam* (Clonazepam*) 2 Mg Tablet, 2 MG PO BID, TAB 10/21/16 Lubiprostone* (Amitiza*) 24 Mcg Capsule, 24 MCG PO BID, #60 CAP 10/21/16 Bupropion Hcl* (Wellbutrin SR*) 200 Mg Tablet.sa, 200 MG PO BID, TAB.SA 10/21/16 Ascorbic Acid (Vitamin C With Ivette Hips) 1,000 Mg Tablet, 1000 MG PO DAILY, TAB 07/22/16 Potassium Chloride* (Potassium Chloride*) 8 Meq Capsule.er, 8 MEQ PO DAILY, CAP 07/22/16 Carbamazepine* (Tegretol Xr*) 200 Mg Tab.sr.12h, 200 MG PO Q12, TAB.SA 09/28/15 Valacyclovir Hcl* (Valacyclovir Hcl*) 500 Mg Tablet, 500 MG PO BID, TAB 09/28/15 Furosemide* (Lasix*) 40 Mg Tablet, 40 MG PO DAILY, TAB 09/28/15 Metformin Hcl* (Metformin Hcl*) 500 Mg Tablet, 500 MG PO WITH BREAKFAST DINNE, # 60 TAB 09/28/15 Discontinued Scripts Acetaminophen* (Tylophen*) 500 Mg Capsule, 1 CAP PO Q6H Y for PAIN AND OR ELEVATED TEMP, #30 CAP Prov:MARIKA MALLOY PA-C 02/11/17 Allergies Allergies: Coded Allergies: sumatriptan (Verified Allergy, Unknown, 10/21/16) PMhx/Soc History of Surgery: Yes (PICC line placement /removal) Anesthesia Reaction: No Hx Neurological Disorder: Yes (Meningitis,seizures) Hx Respiratory Disorders: Yes (Pneumonia) Hx Cardiac Disorders: No Hx Psychiatric Problems: Yes (Schizoaffective Disorder) Hx Miscellaneous Medical Probl: No Hx Alcohol Use: No Hx Substance Use: Yes (Meth) Hx Tobacco Use: No Physical Exam Vitals Vital Signs Date Time Temp Pulse Resp B/P Pulse Ox O2 Delivery O2 Flow Rate FiO2 02/15/17 03:53 97.6 102 22 138/78 98 Room Air 02/15/17 03:13 97.7 106 20 131/75 98 Physical Exam Const: No acute distress. Head: Atraumatic. Eyes: Normal Conjunctiva. ENT: Normal External Ears, Nose and Mouth. Neck: Full range of motion. No meningismus. Resp: Clear to auscultation bilaterally. Cardio: Regular rate and rhythm. Abd: Soft, non distended, normal bowel sounds, non tender. Skin: No petechiae or rashes. Back: No midline or flank tenderness. Ext: No cyanosis, or edema. Neur: Awake and alert. No focal deficit Psych: Suicidal Procedures/MDM MEDICAL MAKING DECISION: The patient is a 36-year-old female, presenting with acute suicidal ideation. The differential diagnoses considered include but are not limited to drug-induced psychosis, psychosis, decompensated psychiatric illness, anxiety attack, panic attack Departure Diagnosis: Primary Impression: Suicidal ideation Condition: Stable Comments Labs are pending She is awaiting for telepsychiatrist evaluation The patient's blood pressure was elevated (>120/80) but appears stable without evidence of hypertension emergency or urgency. The patient was counseled about the risks of hypertension and urged to pursue outpatient monitoring and therapy within a week with their primary care physician. JUSTUS TALBERT MD Feb 15, 2017 03:26
[2017-02-15 04:07] LABS: ADD SCAN DIFF NO
[2017-02-15 04:17] LABS: BASOPHILS % 0.4 % (0.0-2.0); EOSINOPHILS # 0.2 10^3/ul (0.0-0.5); EOSINOPHILS % 2.4 % (0.0-7.0); HEMATOCRIT 33.8 % (37.0-47.0); LYMPHOCYTES % 28.2 % (15.0-51.0); MEAN CORPUSCULAR HEMOGLOBIN 29.3 pg (29.0-33.0); MEAN CORPUSCULAR HGB CONC 32.5 g/dl (32.0-37.0); MEAN CORPUSCULAR VOLUME 89.9 fl (82.0-101.0); MEAN PLATELET VOLUME 9.3 fl (7.4-10.4); MONOCYTE # 0.3 10^3/ul (0.3-0.9); MONOCYTES % 4.5 % (0.0-11.0); NEUTROPHIL # 4.6 10^3/ul (1.6-7.5); NEUTROPHILS % 64.2 % (39.0-77.0); PLATELET COUNT 423 10^3/UL (140-415); RED BLOOD COUNT 3.76 10^6/ul (4.20-5.40); RED CELL DISTRIBUTION WIDTH 12.8 % (11.5-14.5); WHITE BLOOD COUNT 7.1 10^3/ul (4.8-10.8)
[2017-02-15 04:26] LABS: ALANINE AMINOTRANSFERASE 29 IU/L (13-69); ALBUMIN 4.2 g/dl (3.3-4.9); ALKALINE PHOSPHATASE 110 IU/L (42-121); ANION GAP 10 (8-16); ASPARTATE AMINO TRANSFERASE 18 IU/L (15-46); BILIRUBIN,INDIRECT 0.1 mg/dl (0-1.1); BILIRUBIN,TOTAL 0.1 mg/dl (0.2-1.3); BLOOD UREA NITROGEN 9 mg/dl (7-20); CALCIUM 9.1 mg/dl (8.4-10.2); CARBON DIOXIDE 29 mmol/L (21-31); CHLORIDE 108 mmol/L (97-110); CREATININE 0.76 mg/dl (0.44-1.00); GLUCOSE 87 mg/dl (70-220); POTASSIUM 3.1 mmol/L (3.5-5.1); SODIUM 144 mmol/L (135-144)
[2017-02-15 04:32] LABS: ACETAMINOPHEN < 10.0 ug/ml (10.0-30.0); ETHANOL < 10.0 mg/dl; SALICYLATE < 1.0 mg/dl (5.0-30.0)
[2017-02-15] MEDS ORDERED: POTASSIUM CHLORIDE (SR) 20 MEQ TAB PO ONE (04:36)
[2017-02-15] MEDS ORDERED: clonAZEPAM 0.5 MG TAB PO ONE (05:30)
--- NOTE | 2017-02-15 06:17 | PSY ---
Date/Time of Note Date/Time of Note DATE: 02/15/17 TIME: 04:56 Psychiatric Subjective Eval Consent Pt consented to telemedicine: Yes Subjective Evaluation Patient location: emergency Chief Complaint: suicidal ideation " thingking medication overdose" Reason for consult: i am feeling suicidal History of present illness patient is a 36yo female with PPH of depression and anxiety who came to the ER due to feeling suicidal, she states that she has been feeling depressed, hopeless and helpless for weeks due to "being on the wrong medication" and because her mother has stopped talking to her because she does not approve of her boyfriend, she has been suffering from insomnia and started to hear voices putting her down, she attempted suicide 2 months ago with od of morphine and was admitted to the psych unit, she is still suicidal no homicidal.denies any drug or alcohol. Medical history Problems Medical Problems: (1) Abscess Status: Acute (2) Abscess Status: Acute (3) Acute drug overdose Status: Acute (4) Acute schizoaffective disorder Status: Acute (5) Amphetamine abuse Status: Acute (6) Chronic pain Status: Acute (7) Coagulopathy Status: Acute (8) Contusion Status: Acute (9) Drug-seeking behavior Status: Acute (10) Encounter for medication refill Status: Acute (11) Encounter for medication refill Status: Acute (12) Fever Status: Acute (13) Fever Status: Acute (14) Hallucinations Status: Acute (15) Headache Status: Acute (16) Hypokalemia Status: Acute (17) Influenza-like symptoms Status: Acute (18) Intentional drug overdose Status: Acute (19) Medication refill Status: Acute (20) Opioid dependence Status: Acute (21) Patient left without being seen Status: Acute (22) Retention of urine Status: Acute (23) Retention of urine Status: Acute (24) Suicidal ideation Status: Acute (25) Suicidal ideation Status: Acute (26) Suicidal ideation Status: Acute (27) Suicide attempt by substance overdose Status: Acute (28) UTI (urinary tract infection) Status: Acute Allergies: Coded Allergies: sumatriptan (Verified Allergy, Unknown, 10/21/16) Substance Abuse Substance use: No known substance abuse Social History Marital status: single Level of education: college DPA/Conservatorship: No Occupation/Skilled Nursing: unemployed Psychiatric Objective Eval Review of Systems: Review of Systems: Not Applicable Physical Examination: Physical Examination: Applicable Sleep: Insomnia Appetite: Decreased Energy: Decreased Interest: Decreased Mental Status Examination: Appearance: Groomed Eye Contact: Good Behavior: Cooperative Speech: Clear AFFECT: Depressed Mood: Depressed Though Process: Linear, Loose Thought Content: Hallucinations Suicidal: Yes On 72 hour hold: No Orientation: x3 Cognition: Alert Insight: Impared Judgement: Impared Attention Span: Distractible Laboratory Results Laboratory Tests Test 02/15/17 03:45 White Blood Count 7.110^3/ul Red Blood Count 3.7610^6/ul Hemoglobin 11.0g/dl Hematocrit 33.8% Mean Corpuscular Volume 89.9fl Mean Corpuscular Hemoglobin 29.3pg Mean Corpuscular Hemoglobin Concent 32.5g/dl Red Cell Distribution Width 12.8% Platelet Count 60035^3/UL Mean Platelet Volume 9.3fl Neutrophils % 64.2% Lymphocytes % 28.2% Monocytes % 4.5% Eosinophils % 2.4% Basophils % 0.4% Nucleated Red Blood Cells % 0.0/100WBC Neutrophils # 4.610^3/ul Lymphocytes # 2.010^3/ul Monocytes # 0.310^3/ul Eosinophils # 0.210^3/ul Basophils # 0.010^3/ul Nucleated Red Blood Cells # 0.010^3/ul Sodium Level 144mmol/L Potassium Level 3.1mmol/L Chloride Level 108mmol/L Carbon Dioxide Level 29mmol/L Anion Gap 10 Blood Urea Nitrogen 9mg/dl Creatinine 0.76mg/dl Glucose Level 87mg/dl Calcium Level 9.1mg/dl Total Bilirubin 0.1mg/dl Direct Bilirubin 0.00mg/dl Indirect Bilirubin 0.1mg/dl Aspartate Amino Transf (AST/SGOT) 18IU/L Alanine Aminotransferase (ALT/SGPT) 29IU/L Alkaline Phosphatase 110IU/L Total Protein 7.0g/dl Albumin 4.2g/dl Globulin 2.80g/dl Albumin/Globulin Ratio 1.50 Salicylates Level < 1.0mg/dl Acetaminophen Level < 10.0ug/ml Ethyl Alcohol Level < 10.0mg/dl Assessment and Plan Assessment/Diagnosis Av[place] I: PTSD 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 Significant recent DETERIORATION in function, behavior and thought processes Command hallucinations with violent content Patient has failed outpatient and requires further inpatient assessment Medication changes require observation unavailable at a lower level of care. [id number] Recommendation: HEMANT Morley MD Feb 15, 2017 05:48
[2017-02-15] MEDS ORDERED: LEVO500T10 PO (06:18)
[2017-02-15] MEDS ORDERED: BLVX50T PO (06:18)
[2017-02-15 06:23] LABS: ADD UMIC YES; URINE BILIRUBIN (Dip) NEGATIVE (NEGATIVE); URINE BLOOD (Dip) TRACE (NEGATIVE); URINE COLOR LT. YELLOW (YELLOW); URINE GLUCOSE (Dip) NEGATIVE (NEGATIVE); URINE KETONES (Dip) NEGATIVE (NEGATIVE); URINE LEUKOCYTE ESTERASE (Dip) TRACE (NEGATIVE); URINE NITRITE (Dip) NEGATIVE (NEGATIVE); URINE TOTAL PROTEIN (Dip) NEGATIVE (NEGATIVE); URINE UROBILINOGEN (Dip) 0.2 E.U./dL (0.1-1.0)
[2017-02-15 06:31] LABS: SQUAMOUS EPITHELIAL CELL,UR FEW
[2017-02-15 06:44] LABS: OPIATES Negative (NEGATIVE)
[2017-02-15 07:05] LABS: BARBITURATES Negative (NEGATIVE); BENZODIAZEPINES Negative (NEGATIVE); CANNABINOIDS Negative (NEGATIVE); COCAINE Negative (NEGATIVE)
[2017-02-15 10:10] VITALS: BP 132/83; PULSE 94; RESP 20; TEMP 97.9
== END 2017-02-15 12:56 ==
LOC: E/R 03:09
DX: R45.851 Suicidal ideations (principal); R40.2142 Coma scale, eyes open, spontaneous, at arrival to emergency department; R40.2252 Coma scale, best verbal response, oriented, at arrival to emergency department; R40.2362 Coma scale, best motor response, obeys commands, at arrival to emergency department
CPT/HCPCS: 36415; 80053; 80306; 80307; 81001; 85025